=== PATIENT | male | born 1960 | race Caucasian/White ===

== ENCOUNTER 2017-01-03 13:09 | Day surgery (SDC) | payer OTHER ==
[~2017-01-03] VITALS: Ht 180.3 cm; Wt 98.4 kg
[~2017-01-03 13:09] MED LIST: ASCORBIC ACID100 MG PO; CO Q-10400 MG PO; CYANOCOBALAM1000 MCG PO; CYCLOBENZAPRINE10 MG PO; DAILY VITE1 EAC1 PO; ENDOCET 5-3251 EACH PO; FLAXSEED OIL1000 M4 PO; FLEXERIL10 MG PO; HYDROCODON-ACE1 EAC7 PO; LEXAPRO5 MG PO; LISINOPRIL-HCT1 EAC3 PO; LIVALO4 MG PO; LOVENOX40 MG/0.4 SC; LYRICA100 MG PO; MOTRIN800 MG PO; PERCOCET 5/31 TABLET PO; PRILOSEC20 MG PO; PROTONIX40 MG PO; RANITIDINE HCL150 MG PO; TRAMADOL HCL50 MG PO; TYLENOL WITH C1 EACH PO; VITAMIN C500 M1 PO; VITAMIN D1000 INTUN PO; VITAMIN D400 UNI1 PO; [UNRECOGNIZED DRUG - OTHER] IM
== END 2017-01-03 14:44 | disposition home or self-care (01) ==
LOC: PAIN 13:09 → SDC 13:45 → PAIN 13:45
PROC: 3E0U33Z Introduction of Anti-inflammatory into Joints, Percutaneous Approach (ICD-10-PCS; principal; 2017-01-03)
DX: M46.1 Sacroiliitis, not elsewhere classified (principal); M54.16 Radiculopathy, lumbar region; F41.1 Generalized anxiety disorder; E78.5 Hyperlipidemia, unspecified; M79.1 Myalgia; M96.1 Postlaminectomy syndrome, not elsewhere classified
CPT/HCPCS: J1030; J2250; J3010; S0020

== ENCOUNTER 2017-05-23 06:51 | Day surgery (SDC) | payer OTHER ==
[~2017-05-23] VITALS: Ht 180.3 cm; Wt 95.3 kg
== END 2017-05-23 08:44 | disposition home or self-care (01) ==
LOC: PAIN 06:51 → SDC 07:30 → PAIN 08:44
DX: M47.26 Other spondylosis with radiculopathy, lumbar region (principal); M51.16 Intervertebral disc disorders with radiculopathy, lumbar region; M96.1 Postlaminectomy syndrome, not elsewhere classified; I10 Essential (primary) hypertension; K21.9 Gastro-esophageal reflux disease without esophagitis; E78.01 Familial hypercholesterolemia; M62.830 Muscle spasm of back; Z87.891 Personal history of nicotine dependence; Z88.8 Allergy status to other drugs, medicaments and biological substances; Z91.030 Bee allergy status; Z79.891 Long term (current) use of opiate analgesic
CPT/HCPCS: J1030; J2250; J3010; S0020

== ENCOUNTER 2017-05-30 07:02 | Day surgery (SDC) | payer OTHER ==
[~2017-05-30] VITALS: Ht 180.3 cm; Wt 95.3 kg
== END 2017-05-30 08:50 | disposition home or self-care (01) ==
LOC: PAIN 07:02 → SDC 07:30 → PAIN 08:50
DX: M47.26 Other spondylosis with radiculopathy, lumbar region (principal); M51.16 Intervertebral disc disorders with radiculopathy, lumbar region; I10 Essential (primary) hypertension; E78.01 Familial hypercholesterolemia; K21.9 Gastro-esophageal reflux disease without esophagitis; Z87.891 Personal history of nicotine dependence; Z79.891 Long term (current) use of opiate analgesic
CPT/HCPCS: J1030; J2250; J3010; S0020